=== PATIENT | male | born 1955 | race Caucasian/White ===

== ENCOUNTER 2022-06-09 13:34 | Outpatient (REF) | payer MEDICARE, MEDICAID, SELFPAY ==
[2022-06-09 16:03] LABS: ALT 208 U/L (16-63); AST 53 U/L (15-37); Albumin 3.5 g/dL (3.4-5.0); Alkaline Phosphatase 157 U/L (46-116); Anion Gap 4.7 mmol/L (3-11); BUN 13 mg/dL (7-18); Bilirubin, Total 1.5 mg/dL (0.2-1.0); CO2 30.3 mmol/L (21.0-32.0); CREATININE 0.9 mg/dL (0.70-1.30); Calcium 9.2 mg/dL (8.5-10.1); Chloride 103 mmol/L (98-107); Estimated GFR 93.03 (mL/min/1.73m2); Glucose 115 mg/dL (74-106); Lipase 42 U/L (16-77); Sodium 138 mmol/L (136-145); Total Protein 6.8 g/dL (6.4-8.2)
== END 2022-06-09 13:35 | disposition home or self-care (01) ==
LOC: NCHCN 13:34
PROVIDERS: PCP Internal Medicine; Visit Provider Family Medicine
DX: Z87.19 Personal history of other diseases of the digestive system (principal)
CPT/HCPCS: 80053; 83690

== ENCOUNTER 2022-08-18 15:27 | Outpatient (REF) | payer MEDICARE, SELFPAY ==
--- OUTSIDE RECORDS SUMMARY | 2022-08-18 15:31 | XMS_ITS | CCD ---
Author Name Unknown Address [address] [place] [address] [phone] Organization Unknown Address [address] [place] [address] [phone] Care Team Providers Care Capacity Manager Name Role Phone RUI RODARTE Attending Physician [phone] Vital Signs Unknown or Not Available. Allergies Allergy Code Allergy Type Reaction Status No Known Allergies 0 No known allergies Active Procedures Unknown or Not Available. History of Immunizations Unknown or Not Available. Problems Problem Code Start Date Resolved Date Status Acute pancreatitis [id number] Active Abdominal pain [id number] Active Gangrenous cholecystitis 71670814 06/03/2022 Resolved Results Unknown or Not Available. Active Medications Medication Code Dose Units Frequency Route Modificatio n Start Date/Time Pantoprazole Sodium 40 MG Oral Tablet, Delayed Release 186406 40 MG DAILY ORAL 05/18 18:41 Prescription Detail TAKE 40 MG ORAL DAILY Propranolol HCl 10MG Oral Tablet 496146 0.5 TABLET NEEDED ORAL 06/03/2022 18:41 Prescription Detail TAKE 0.5 TABLET ORAL NEEDED solifenacin succinate 5MG Oral Tablet 652567 5 MILLIGRAMS DAILY ORAL 023 18:41 Prescription Detail TAKE 5 MILLIGRAMS ORAL DAILY Medications Administered During Visit Unknown or Not Available. Encounters Encounter Diagnosis Diagnosis Code Start Date Acute pancreatitis without n ecrosis or infection, unspecified [id number] 06/03/2022 Social History Smoking Status Code Start Date End Date Never smoker [id number] Patient Decision Aids Unknown or Not Available. Discharge Instructions You were admitted to [facility] on 06/03/2022 12:19 with a principal diagnosis of Acute pancreatitis without necrosis or infection, unspecified You were discharged from [facility] on 06/03/2022 00:00 Should you have any questions prior to discharge, please contact a member of your healthcare team. If you have left the hospital and have any questions, please contact your primary care physician. Chief Complaint and Reason For Visit Unknown or Not Available. Function Status Unknown or Not Available. Plan of Care Unknown or Not Available. Referral/Transition of Care Unknown or Not Available.
--- OUTSIDE RECORDS SUMMARY | 2022-08-18 15:31 | XMS_ITS | CCD ---
Author Name Unknown Address [address] [place] [address] [phone] Organization Unknown Address [address] [place] [address] [id number] Care Team Providers Care Shipping Clerk Packing Name Role Phone RUI RODARTE Attending Physician [phone] EVY PULLIAM Er Physician [phone] EVY PULLIAM Rounding (Secondary) Physician [phone] [place]RIA Estrella Registered Nurse [phone] IDALMIS Zaragoza Registered Nurse [phone] Vital Signs Vital Sign Value Unit Date/Time Recent/Initial ? BMI (Body Mass Index) 34.56 kg/m^2 06/03/2022 09: 23 Initial VS Weight Measured 234 lbs 06/03/2022 09:23 Ini tial VS Height 69 in 06/03/2022 09:23 Initial VS BSA (Body Surface Area) 2.27 m^2 06/03/2022 0 9:23 Initial VS BP Systolic 135 mmHg 06/03/2022 09:23 Initial VS BP Diastolic 88 mmHg 06/03/2022 09:23 Initia l VS Respiratory Rate 16 bpm 06/03/2022 09:23 In itial VS Heart Rate 81 bpm 06/03/2022 09:23 Initial VS O2 % BldC Oximetry 94 % 06/03/2022 09:23 Initial VS Body Temperature 36.4 degrees 06/03/2022 09:23 In itial VS Body Temperature 37.1 degrees 06/03/2022 18:[address] Recent VS BP Systolic 138 mmHg 06/03/2022 19:43 Most Re cent VS BP Diastolic 76 mmHg 06/03/2022 19:43 Most R ecent VS Respiratory Rate 18 bpm 06/03/2022 19:[address] Recent VS Heart Rate 76 bpm 06/03/2022 19:43 Most Rec ent VS O2 % BldC Oximetry 97 % 06/03/2022 19:43 Most Recent VS Allergies Allergy Code Allergy Type Reaction Status No Known Allergies 0 No known allergies Active Procedures Unknown or Not Available. History of Immunizations Unknown or Not Available. Problems Problem Code Start Date Resolved Date Status Acute pancreatitis 635422712 Active Abdominal pain 16820293 Active Gangrenous cholecystitis 85607410 06/03/2022 Resolved Results COMPREHENSIVE METABOLIC PANE L (CMP) - Collect Date/Time: 06/03/2022 17:45 Test Name Code Test Result Test Units Test Ref Rang e GLUCOSE 2345-7 158 mg/dL L=70 H=116 BUN 3094-0 12 mg/dL L=6 H=25 CREATININE 2160-0 0.83 mg/dL L=0.67 H=1.17 SODIUM SERUM 2951-2 138 mmol/L L=136 H=145 POTASSIUM SERUM 2823-3 3.3 mmol/L L=3.4 H=5 .2 CHLORIDE SERUM 2075-0 102 mmol/L L=96 H=110 CARBON DIOXIDE (CO2) 2028-9 29 mmol/L L=22 H=34 ANION GAP 70947-1 7.0 mmol/L CALCIUM SERUM 52815-8 8.5 mg/dL L=8.2 H=10. 2 BILIRUBIN TOTAL 1975-2 3.6 mg/dL L=0.0 H=1 .3 ALK. PHOS. 6768-6 238 U/L L=46 H=116 SGOT (AST) 1920-8 128 U/L L=15 H=37 SGPT (ALT) 1742-6 481 U/L L=12 H=78 TOTAL PROTEIN 2885-2 6.3 gm/dL L=6.0 H=8.0 ALBUMIN 1751-7 3.1 gm/dL L=3.4 H=5.0 AGE 67 years eGFR (non-Afr.Amer.) 38658-4 92 mL/min eGFR (Afr-Bermudian) 85808-6 111 mL/min COMPREHENSIVE METABOLIC PANE L (CMP) - Collect Date/Time: 06/03/2022 09:50 Test Name Code Test Result Test Units Test Ref Rang e GLUCOSE 2345-7 129 mg/dL L=70 H=116 BUN 3094-0 13 mg/dL L=6 H=25 CREATININE 2160-0 0.74 mg/dL L=0.67 H=1.17 SODIUM SERUM 2951-2 138 mmol/L L=136 H=145 POTASSIUM SERUM 2823-3 3.4 mmol/L L=3.4 H=5 .2 CHLORIDE SERUM 2075-0 101 mmol/L L=96 H=110 CARBON DIOXIDE (CO2) 2028-9 28 mmol/L L=22 H=34 ANION GAP 79822-6 9.1 mmol/L CALCIUM SERUM 49128-1 8.7 mg/dL L=8.2 H=10. 2 BILIRUBIN TOTAL 1975-2 4.4 mg/dL L=0.0 H=1 .3 ALK. PHOS. 6768-6 255 U/L L=46 H=116 SGOT (AST) 1920-8 153 U/L L=15 H=37 SGPT (ALT) 1742-6 552 U/L L=12 H=78 TOTAL PROTEIN 2885-2 6.6 gm/dL L=6.0 H=8.0 ALBUMIN 1751-7 3.3 gm/dL L=3.4 H=5.0 AGE 67 years eGFR (non-Afr.Amer.) 49785-7 105 mL/min eGFR (Afr-Bermudian) 73930-1 >120 mL/min LIPASE* NEW - Collect Date/T clint: 06/03/2022 17:45 Test Name Code Test Result Test Units Test Ref Rang e LIPASE. 695 U/L L=16 H=77 LIPASE* NEW - Collect Date/T clint: 06/03/2022 09:50 Test Name Code Test Result Test Units Test Ref Rang e LIPASE. 1288 U/L L=16 H=77 MAGNESIUM SERUM* - Collect D ate/Time: 06/03/2022 09:50 Test Name Code Test Result Test Units Test Ref Rang e MAGNESIUM 41647-9 1.7 mg/dL L=1.8 H=2.4 CBC W/ DIFFERENTIAL* - Colle ct Date/Time: 06/03/2022 09:50 Test Name Code Test Result Test Units Test Ref Rang e WBC 6690-2 5.65 th/cmm L=5.00 H=10.00 NEUT % 73.1 % L=40.0 H=80.0 LYMPH % 16.5 % L=10.0 H=50.0 MONO % 59409-7 8.3 % L=2.0 H=12.0 EOS % 1.2 % L=0.0 H=8.0 BASO % 0.5 % L=0.0 H=3.0 IG % 2514-8 0.4 % L=0.0 H=1.1 NRBC % 83249-8 0.0 % L=0.0 H=0.0 NEUT abs count 751-8 4.1 th/cmm L=1.6 H=8. 4 LYMPH abs count 731-0 0.9 th/cmm L=1.5 H=4 .0 MONO abs count 742-7 0.5 th/cmm L=0.2 H=1. 0 EOS abs count 711-2 0.1 th/cmm L=0.0 H=0.5 BASO abs count 704-7 0.0 th/cmm L=0.0 H=0. 2 IG abs count 66064-3 0.0 th/cmm L=0.0 H=0.1 NRBC abs count 66411-0 0.0 mil/cmm L=0.0 H=0. 0 RBC 789-8 4.66 mil/cmm L=4.30 H=6.20 HEMOGLOBIN 718-7 15.9 gm/dL L=13.0 H=17.0 HEMATOCRIT 4544-3 45 % L=45 H=52 MCV 787-2 97 fL L=82 H=92 MCH 785-6 34.1 pg L=27.0 H=31.0 MCHC 786-4 35.2 % L=32.0 H=36.0 RDW-SD 788-0 46.4 fL L=39.0 H=49.0 PLATELET COUNT 777-3 189 th/cmm L=150 H=45 0 PT PROTHROMBIN TIME* - Colle ct Date/Time: 06/03/2022 09:50 Test Name Code Test Result Test Units Test Ref Rang e PROTIME 5902-2 10.5 seconds L=9.3 H=11.4 INR 38775-2 1.05 L=2.00 H=3.00 HIMA LOZOYAID GENEXPERT* - Co llect Date/Time: 06/03/2022 12:20 Test Name Code Test Result Test Units Test Ref Rang e COVID 70800-1 NEGATIVE N/A Normal: Negati ve SOURCE= 80659-3 Anterior nasal N/A Tier- 21383-0 INPATIENT/ED N/A URINALYSIS WITH REFLEX CULT IF POSITIVE* - Collect Date/Time: 06/03/2022 15:55 Test Name Code Test Result Test Units Test Ref Rang e COLLECTION MODE: 52595-1 CLEAN CATCH N/A Color 5778-6 YELLOW N/A yellow Appearance 5767-9 CLEAR N/A clear Glucose urine 04959-0 NEGATIVE N/A negative mg /dl Bilirubin 5770-3 SMALL N/A negative Ketones 2514-8 TRACE N/A negative mg/dl Spec gravity 5811-5 <=1.005 N/A 1.003 - 1.03 0 pH urine 2756-5 6.5 N/A 5.0 - 7.0 Protein 60987-3 NEGATIVE N/A negative mg/dl Urobilinogen 45432-4 0.2 N/A <or= 1 EU/dl Nitrite. 5802-4 NEGATIVE N/A negative Blood 5794-3 TRACE-IN N/A negative Leukocytes. NEGATIVE N/A negative MICROSCOPIC INDICATED N/A WBCs. 29025-9 0-5 N/A 0-5 / hpf RBCs 08261-9 0-5 N/A 0-5 / hpf Epith cells 69179-9 none N/A 0-5 / hpf Crystals none N/A none Bacteria none N/A none Mucus 8247-9 present N/A none Casts 32933-8 0-5 N/A none /lpf Cast types hyaline N/A Active Medications Medication Code Dose Units Frequency Route Modificatio n Start Date/Time Pantoprazole Sodium 40 MG Oral Tablet, Delayed Release 954263 40 MG DAILY ORAL 05/18 18:41 Prescription Detail TAKE 40 MG ORAL DAILY Propranolol HCl 10MG Oral Tablet 630891 0.5 TABLET NEEDED ORAL 06/03/2022 18:41 Prescription Detail TAKE 0.5 TABLET ORAL NEEDED solifenacin succinate 5MG Oral Tablet 090774 5 MILLIGRAMS DAILY ORAL 023 18:41 Prescription Detail TAKE 5 MILLIGRAMS ORAL DAILY Medications Administered During Visit Medication Dose Units Frequency Route Date/Time of Last Dose SODIUM CHLORIDE 0.9% 500ML 500 ML X1 IV 06/03/2022 10:00 MAGNESIUM SULF PREMIX IV BAG : 1GM/100ML 1 GM X1 IVPB 06/03/2022 12:2 2 SODIUM CHLORIDE 0.9% 1000ML 1000 ML CONT IV 06/03/2022 13:47 Encounters Encounter Diagnosis Diagnosis Code Start Date Acute pancreatitis [id number] 06/03/2022 Social History Smoking Status Code Start Date End Date Never smoker [id number] Patient Decision Aids Unknown or Not Available. Discharge Instructions You were admitted to [facility] on 06/03/2022 15:33 with a principal diagnosis of Acute pancreatitis without necrosis or infection, unspecified You had the following tests done:COMPREHENSIVE METABOLIC PANEL (CMP)LIPASE* NEWURINALYSIS WITH REFLEX CULT IF POSITIVE*[facility] COVID GENEXPERT*CBC W/ DIFFERENTIAL*COMPREHENSIVE METABOLIC PANEL (CMP)LIPASE* NEWMAGNESIUM SERUM*PT PROTHROMBIN TIME* You were discharged from [facility] on 06/03/2022 19:44 Should you have any questions prior to discharge, please contact a member of your healthcare team. If you have left the hospital and have any questions, please contact your primary care physician. Chief Complaint and Reason For Visit Chief Complaint Date of Onset ACUTE PANREATITIS ABDOMINAL PAIN 023 Function Status Unknown or Not Available. Plan of Care Unknown or Not Available. Referral/Transition of Care Unknown or Not Available.
[2022-08-18 20:53] LABS: Hemoglobin A1C 5.8 % (<5.7)
[2022-08-18 20:55] LABS: ALT 40 U/L (16-63); AST 23 U/L (15-37); Albumin 3.9 g/dL (3.4-5.0); Alkaline Phosphatase 74 U/L (46-116); Anion Gap 7.7 mmol/L (3-11); BUN 17 mg/dL (7-18); Bilirubin, Total 0.5 mg/dL (0.2-1.0); CO2 27.3 mmol/L (21.0-32.0); CREATININE 0.9 mg/dL (0.70-1.30); Chloride 105 mmol/L (98-107); Estimated GFR 93.03 (mL/min/1.73m2); Glucose 105 mg/dL (74-106); Potassium 4.2 mmol/L (3.5-5.1); Sodium 140 mmol/L (136-145); Total Protein 6.8 g/dL (6.4-8.2)
[2022-08-19 19:41] LABS: PSA, Screening 2.6 ng/mL (<=4.5)
== END 2022-08-18 15:28 | disposition home or self-care (01) ==
LOC: NCHCN 15:27
PROVIDERS: PCP Internal Medicine; Visit Provider Registered Nurse
DX: R73.09 Other abnormal glucose (principal); Z12.5 Encounter for screening for malignant neoplasm of prostate; Z87.19 Personal history of other diseases of the digestive system; Z00.00 Encounter for general adult medical examination without abnormal findings
CPT/HCPCS: 80053; 84153; 83036

== ENCOUNTER 2022-10-18 09:50 | Outpatient (CLI) | payer MEDICARE, SELFPAY ==
--- NOTE | 2022-10-18 09:30 | DI.RAD_ITS ---
Exam(s) XR SHOULDER RT COMPLETE 2+V EXAM: XR SHOULDER RT COMPLETE 2+V CLINICAL HISTORY: RIGHT SHOULDER PAIN. TECHNIQUE: 2D digital imaging was performed. Two views. COMPARISON: CR LEFT SHOULDER COMPLETE from 05/27/2014 FINDINGS: BONES: No acute fracture is present. No bony destructive lesion is seen. Spurring at the tip of the acromion. Spurring at greater and lesser tuberosities. JOINTS: No dislocation present. Glenohumeral joint space is maintained. Minimal spurring at the gle noid. SOFT TISSUE: Normal. IMPRESSION: Mild degenerative changes. DATA REPOSITORY: RADIATION DOSE DELIVERED:
--- NOTE | 2022-10-18 09:30 | DI.RAD_ITS ---
Exam(s) XR SHOULDER LT COMPLETE 2+V EXAM: XR SHOULDER LT COMPLETE 2+V CLINICAL HISTORY: LEFT SHOULDER PAIN. TECHNIQUE: 2D digital imaging was performed. Three views. COMPARISON: MR MRI - L UPPER JOINT WO CONT from 05/29/2014 FINDINGS: BONES: No acute fracture is present. No bony destructive lesion is seen. JOINTS: No dislocation present. Mild spurring at AC joint. Minimal spurring at glenoid. Glenohumer al joint space is maintained. Prominence of lesser tuberosity. SOFT TISSUE: Normal. IMPRESSION: Mild degenerative changes. DATA REPOSITORY: RADIATION DOSE DELIVERED:
== END 2022-10-18 09:51 | disposition home or self-care (01) ==
LOC: DIORS 09:50
PROVIDERS: PCP Registered Nurse; Referring Provider Registered Nurse; Visit Provider Student in an Organized Health Care Education/Training Program
DX: M19.011 Primary osteoarthritis, right shoulder; M19.012 Primary osteoarthritis, left shoulder
CPT/HCPCS: 20610; 99203; 73030; J1030

== ENCOUNTER 2022-12-19 09:49 | Outpatient (CLI) | payer MEDICARE, SELFPAY ==
--- NOTE | 2022-12-19 09:30 | DI.RAD_ITS ---
Exam(s) XR KNEE LT 3V AP,LAT,STEPHON EXAM: XR KNEE LT 3V AP,LAT,STEPHON CLINICAL HISTORY: LEFT KNEE PAIN. TECHNIQUE: 2D digital imaging was performed. COMPARISON: No exams were available for comparison FINDINGS: 3 views There is no evidence of fracture but there is a small joint effusion noted. On the weight-bearing vi ew there there is advanced narrowing of the medial compartment noted. Lateral compartment exhibits n ormal height. Some calcification is noted lateral to the bilateral femoral condyles in the region of the medial collateral ligament and fibular collateral ligament. Bone density normal. No osseous le sions. IMPRESSION: Degenerative changes, most evident in the medial compartment of the left knee DATA REPOSITORY: RADIATION DOSE DELIVERED:
== END 2022-12-19 09:50 | disposition home or self-care (01) ==
LOC: DIORS 09:49
PROVIDERS: PCP Family Medicine; Referring Provider Internal Medicine; Visit Provider Student in an Organized Health Care Education/Training Program
DX: M25.562 Pain in left knee (principal); M17.12 Unilateral primary osteoarthritis, left knee
CPT/HCPCS: 20610; 73562; J1040

== ENCOUNTER → 2023-03-27 09:47 | Outpatient (BNVA) | payer MEDICARE, SELFPAY | PROVIDERS: PCP Family Medicine; Referring Provider Family Medicine; Visit Provider Student in an Organized Health Care Education/Training Program | DX: M17.12 Unilateral primary osteoarthritis, left knee (principal) | CPT/HCPCS: 20610; J1040 ==

== ENCOUNTER → 2023-04-05 08:49 | Outpatient (BNVA) | payer MEDICARE, SELFPAY | PROVIDERS: PCP Family Medicine; Referring Provider Family Medicine; Visit Provider Student in an Organized Health Care Education/Training Program | DX: M19.011 Primary osteoarthritis, right shoulder (principal); M19.012 Primary osteoarthritis, left shoulder | CPT/HCPCS: 20610; J1030 ==

== ENCOUNTER → 2023-05-30 09:34 | Outpatient (BNVA) | payer MEDICARE, SELFPAY | PROVIDERS: PCP Family Medicine; Visit Provider Student in an Organized Health Care Education/Training Program | DX: M17.12 Unilateral primary osteoarthritis, left knee (principal); D68.51 Activated protein C resistance | CPT/HCPCS: 99214 ==

== ENCOUNTER → 2023-08-03 02:19 | Outpatient (CLI) | payer MEDICARE, SELFPAY ==
--- NOTE | 2023-08-03 07:30 | DI.RAD_ITS ---
Exam(s) RF JOINT INJECTION FLUORO GUID EXAM: RF JOINT INJECTION FLUORO GUID-RIGHT CLINICAL HISTORY: R SHOULDER INJ UNDER FLUORO,primary oa rt shoulder,m19.011 TECHNIQUE: Fluoroscopic guided shoulder glenohumeral joint injection CONTRAST MATERIAL: None COMPARISON: No exams were available for comparison FINDINGS: FLUOROSCOPIC GUIDED RIGHT SHOULDER THERAPEUTIC STEROID INJECTION Patient was consented prior to this procedure. Patient was placed in supine position on the fluoroscopy table. Using sterile technique and adequate skin-subcutaneous anesthesia, fluoroscopic guidance was used to advance a 22 gauge spinal needle into the glenohumeral joint via an anterior approach. Intra-articula r position of the needle was confirmed with contrast injection. Thereafter, a sterile solution of 80 milligrams methylprednisolone and 3 cc bupivacaine was injected into the intra-articular compartment. Patient tolerated this procedure well and there were no intraprocedural complications Cumulative Dose: Ka,r=1.13 mGy IMPRESSION: Successful fluoroscopic guided right shoulder glenohumeral joint therapeutic steroid injection. RADIATION DOSE DELIVERED:
--- NOTE | 2023-08-03 07:30 | DI.RAD_ITS ---
Exam(s) RF JOINT INJECTION FLUORO GUID EXAM: RF JOINT INJECTION FLUORO GUID-LEFT CLINICAL HISTORY: L SHOULDER INJ UNDER FLUORO,arthritis both glenohumeral joints,m19.012 TECHNIQUE: Fluoroscopic guided therapeutic left shoulder injection CONTRAST MATERIAL: Omnipaque-300; 3 cc COMPARISON: No exams were available for comparison FINDINGS: FLUOROSCOPIC GUIDED LEFT SHOULDER THERAPEUTIC STEROID INJECTION Patient was consented prior to this procedure. Patient was placed in supine position on the fluoroscopy table. Using sterile technique and adequate skin-subcutaneous anesthesia, fluoroscopic guidance was used to advance a 22 gauge spinal needle into the glenohumeral joint via an anterior approach. Intra-articula r position of the needle was confirmed with contrast injection. Thereafter, a sterile solution of 80 milligrams methylprednisolone and 3 cc bupivacaine was injected into the intra-articular compartment. Patient tolerated this procedure well and there were no intraprocedural complications Cumulative Dose: Ka,r=4.43 mGy IMPRESSION: Successful fluoroscopic guided left shoulder glenohumeral joint steroid injection RADIATION DOSE DELIVERED:
[2023-08-03] MEDS: Lidocaine 1% Multi-Dose 50 ML VIAL IJ (13:47)
[2023-08-03] MEDS: Omnipaque 300 MG/ML 10 ML BTL IJ (13:49)
[2023-08-03] MEDS: methylPREDNISolone ACETATE 80 MG/ML VIAL IM (13:50)
[2023-08-03] MEDS: Bupivacaine 0.5% Pres-Free 10 ML VIAL 25 ML IJ (13:52)
== END ==
PROVIDERS: PCP Family Medicine; Visit Provider Student in an Organized Health Care Education/Training Program
DX: M19.011 Primary osteoarthritis, right shoulder (principal); M19.012 Primary osteoarthritis, left shoulder
CPT/HCPCS: 20610; 77001; 77002; J0665; J1010

== ENCOUNTER → 2023-08-29 01:29 | Outpatient (CLI) | payer MEDICARE, SELFPAY ==
--- NOTE | 2023-08-29 08:15 | DI.RAD_ITS ---
Exam(s) XR FOOT RT COMPLETE EXAM: XR FOOT RT COMPLETE CLINICAL HISTORY: Right foot pain,m79.671. TECHNIQUE: 2D digital imaging was performed of the right foot. Three images were obtained. AP, obl ique and lateral views were obtained. COMPARISON: No exams were available for comparison FINDINGS: BONES: No acute fracture is present. No bony destructive lesion is seen. There is a small enthesophyt e at the posterior calcaneus. JOINTS: No dislocation present. There are mild degenerative changes seen at the talonavicular joint. There is a multicentric os peroneum. SOFT TISSUE: Normal. IMPRESSION: No acute fracture or dislocation. DATA REPOSITORY: RADIATION DOSE DELIVERED:
== END ==
PROVIDERS: PCP Family Medicine; Visit Provider Podiatrist
DX: M79.671 Pain in right foot (principal); M77.31 Calcaneal spur, right foot
CPT/HCPCS: 29540; 64455; 73630

== ENCOUNTER → 2023-10-04 10:01 | Outpatient (BNVA) | payer MEDICARE, SELFPAY | PROVIDERS: PCP Family Medicine; Referring Provider Family Medicine; Visit Provider Student in an Organized Health Care Education/Training Program | DX: M19.011 Primary osteoarthritis, right shoulder (principal); M19.012 Primary osteoarthritis, left shoulder; M75.101 Unspecified rotator cuff tear or rupture of right shoulder, not specified as traumatic | CPT/HCPCS: 99213 ==

== ENCOUNTER → 2023-10-12 09:02 | Outpatient (BNVA) | payer MEDICARE, SELFPAY | PROVIDERS: PCP Family Medicine; Referring Provider Family Medicine; Visit Provider Podiatrist | DX: G57.61 Lesion of plantar nerve, right lower limb (principal); M79.671 Pain in right foot; M67.01 Short Achilles tendon (acquired), right ankle; M67.02 Short Achilles tendon (acquired), left ankle | CPT/HCPCS: 64455; J0702; J1100 ==

== ENCOUNTER → 2023-10-17 01:12 | Outpatient (CLI) | payer MEDICARE, SELFPAY ==
--- NOTE | 2023-10-17 07:30 | DI.MRI_ITS ---
Exam(s) MR UPPER JOINT RT WO EXAM: MR UPPER JOINT RT WO CLINICAL HISTORY: R SHOULDER PAIN,rt rotator cuff tear,m75.101. TECHNIQUE: Multiplanar multisequence MRI was performed. COMPARISON: Plain films 18 October 2022 FINDINGS: BONES: There is no fracture or contusion pattern. Small degenerative cysts in the humeral head. JOINTS:The acromioclavicular joint shows minimal degenerative changes. Spurring at the tip of the ac romion. The glenohumeral joint is normal. TENDONS: Supraspinatus: Thickening and intermediate signal in the distal supraspinatus tendon, consistent with tendinosis. Infraspinatus: Unremarkable. Subscapularis: Unremarkable. Teres Minor: Unremarkable. Biceps and [place]: Unremarkable. MUSCLES: Unremarkable. GLENOID LABRUM: Unremarkable on this noncontrast examination. SOFT TISSUES: Unremarkable. OTHER: Subacromial and subdeltoid bursae shows minimal fluid.. IMPRESSION: Supraspinatus tendinosis. DATA REPOSITORY:
== END ==
PROVIDERS: PCP Family Medicine; Visit Provider Student in an Organized Health Care Education/Training Program
DX: M75.101 Unspecified rotator cuff tear or rupture of right shoulder, not specified as traumatic (principal); M67.813 Other specified disorders of tendon, right shoulder
CPT/HCPCS: 73221

== ENCOUNTER → 2023-10-25 08:23 | Outpatient (BNVA) | payer MEDICARE, SELFPAY | PROVIDERS: PCP Family Medicine; Referring Provider Family Medicine; Visit Provider Student in an Organized Health Care Education/Training Program | DX: M19.011 Primary osteoarthritis, right shoulder (principal); M19.012 Primary osteoarthritis, left shoulder; M75.101 Unspecified rotator cuff tear or rupture of right shoulder, not specified as traumatic | CPT/HCPCS: 99213 ==

== ENCOUNTER → 2023-11-07 08:33 | Outpatient (BNVA) | payer MEDICARE, SELFPAY | PROVIDERS: PCP Family Medicine; Referring Provider Family Medicine; Visit Provider Podiatrist | DX: M79.671 Pain in right foot (principal); G57.81 Other specified mononeuropathies of right lower limb; M67.01 Short Achilles tendon (acquired), right ankle; M67.02 Short Achilles tendon (acquired), left ankle | CPT/HCPCS: 99213 ==

== ENCOUNTER 2024-01-04 00:39 | Outpatient (CLI) | payer MEDICARE, SELFPAY ==
--- NOTE | 2024-01-04 06:30 | DI.MRI_ITS ---
Exam(s) MR LOWER EXTREMITY RT WO EXAM: MR LOWER EXTREMITY RT WO CLINICAL HISTORY: Neuroma versus bursa third interspace of rt foot, g57.81. TECHNIQUE: Multiplanar multisequence MRI was performed. COMPARISON: CR XR FOOT RT COMPLETE from 08/29/2023 FINDINGS: BONES/JOINTS: No evidence of fracture. Subchondral cysts are seen at the articular surface of the med ial cuneiform. No joint space narrowing identified. There is a small effusion in the 1st metatarsoph alangeal joint. LIGAMENTS: The medial and lateral collateral ligaments are intact. MUSCULOTENDINOUS STRUCTURES: Visualized portion of the planar fascia is unremarkable. The visualized intrinsic muscles and tendons of the foot are unremarkable. SOFT TISSUES: There is mild hyperintense signal seen on the plantar surface of the foot adjacent to t he heads of the 2nd and 3rd metatarsals. No teardrop shaped mass is identified. There is no displacem ent of the surrounding structures. No focal fluid collection is seen. There is a tiny amount of fluid seen between the metatarsal heads but it is less than 2 mm and is likely physiologic. OTHER FINDINGS: None. IMPRESSION: 1. Mild edema in the subcutaneous tissues adjacent to the heads of the 2nd and 3rd metatarsals. No ma ss or focal fluid collection is seen. There is no displacement of the surrounding structures. No defi nite evidence of a neuroma. Tiny amount of fluid between the metatarsal heads which is less than 2 mm and is likely physiologic. DATA REPOSITORY:
== END 2024-01-04 00:59 ==
LOC: DI 00:39
PROVIDERS: PCP Family Medicine; Visit Provider Podiatrist
DX: G57.81 Other specified mononeuropathies of right lower limb (principal)
CPT/HCPCS: 73718

== ENCOUNTER → 2024-01-10 10:27 | Outpatient (BNVA) | payer MEDICARE, SELFPAY | PROVIDERS: PCP Family Medicine; Referring Provider Family Medicine; Visit Provider Podiatrist | DX: L60.0 Ingrowing nail (principal); M79.671 Pain in right foot; G57.61 Lesion of plantar nerve, right lower limb; M67.01 Short Achilles tendon (acquired), right ankle; M67.02 Short Achilles tendon (acquired), left ankle | CPT/HCPCS: 11750; 64455 ==

== ENCOUNTER → 2024-01-31 08:21 | Outpatient (BNVA) | payer MEDICARE, SELFPAY | PROVIDERS: PCP Family Medicine; Referring Provider Family Medicine; Visit Provider Student in an Organized Health Care Education/Training Program ==

== ENCOUNTER 2024-01-31 11:21 | Outpatient (CLI) | payer MEDICARE, SELFPAY ==
[2024-01-31 09:36] LABS: HCT 48.1 % (40.0-50.0); HGB 16.2 g/dL (13.5-17.5); MCH 33.1 pg (27.0-33.0); MCHC 33.7 % (32.0-36.0); MCV 98 fL (80-95); MPV 9.5 fL (8.0-11.0); Platelet Count 185 10^3/uL (130-400); RBC 4.89 10^6/uL (4.36-5.78); RDW 11.9 % (11.8-14.1); RDW-SD 43.3 fL; WBC 3.73 10^3/uL (4.4-10.8)
[2024-01-31 09:41] LABS: ESR < 1 mm/hr (0-20)
[2024-01-31 10:06] LABS: C-Reactive Protein < 0.50 mg/dL (<or=0.5)
== END 2024-01-31 11:22 | disposition home or self-care (01) ==
LOC: LBO 11:22
PROVIDERS: PCP Family Medicine; Visit Provider Student in an Organized Health Care Education/Training Program
DX: M35.3 Polymyalgia rheumatica (principal); M75.101 Unspecified rotator cuff tear or rupture of right shoulder, not specified as traumatic; Z09 Encounter for follow-up examination after completed treatment for conditions other than malignant neoplasm; L60.0 Ingrowing nail; M79.673 Pain in unspecified foot; M79.671 Pain in right foot; G57.81 Other specified mononeuropathies of right lower limb; M67.01 Short Achilles tendon (acquired), right ankle; M67.02 Short Achilles tendon (acquired), left ankle
CPT/HCPCS: 36415; 64455; 85027; 85652; 99213; 86140

== ENCOUNTER 2024-02-05 00:56 | Outpatient (CLI) | payer MEDICARE, SELFPAY ==
[2024-02-05] MEDS: Lidocaine 1% Pres-Free 30 ML VIAL IJ (15:51)
[2024-02-05] MEDS: Bupivacaine 0.5% Pres-Free 10 ML VIAL IJ (15:52)
[2024-02-05] MEDS: Omnipaque 300 MG/ML 10 ML BTL IJ (15:53)
[2024-02-05] MEDS: methylPREDNISolone ACETATE 40 MG/ML VIAL IM ×2 (15:54→15:55)
--- NOTE | 2024-02-05 16:00 | DI.RAD_ITS ---
Exam(s) RF JOINT INJ. FLUORO GUID RAD EXAM: RF JOINT INJ. FLUORO GUID RAD CLINICAL HISTORY: L SHOULDER PAIN,M19.011, FLUORO GUIDED INJECTION. TECHNIQUE: 2D and realtime digital imaging was performed. CONTRAST MATERIAL: 2.39 oral water soluble contrast was administered. COMPARISON: RF RF JOINT INJECTION FLUORO GUID from 08/03/2023 RF RF JOINT INJECTION FLUORO GUID from 08/03/2023 FINDINGS: FLUOROSCOPIC GUIDED LEFT SHOULDER THERAPEUTIC STEROID INJECTION: Patient was consented prior to this procedure. The patient was placed in the supine position on the fluoroscopy table. Using sterile technique and adequate skin-subcutaneous anesthesia, fluoroscopic guidance was used to advance a 22 gauge spinal needle into the glenohumeral joint space via an anterior approach. Intra-a rticular position of the needle was confirmed with injection of 2 cc Omnipaque 300. Thereafter a krupa rile solution of 40 milligrams methyl prednisolone/depot Medrol and 4 cc bupivacaine was injected int o the articular space. Patient tolerated this procedure well and there were no intraprocedural complications IMPRESSION: Successful fluoroscopic guided left shoulder glenohumeral joint injection RADIATION DOSE DELIVERED: Ka,r=2.39mGy
--- NOTE | 2024-02-05 16:00 | DI.RAD_ITS ---
Exam(s) RF JOINT INJ. FLUORO GUID RAD EXAM: RF JOINT INJ. FLUORO GUID RAD CLINICAL HISTORY: R SHOULDER PAIN,M19.011, FLUORO GUIDED INJECTION. TECHNIQUE: 2D and realtime digital imaging was performed. CONTRAST MATERIAL: See below COMPARISON: Prior study 08/03/2023 was reviewed FINDINGS: FLUOROSCOPIC GUIDED RIGHT SHOULDER THERAPEUTIC STEROID INJECTION: Patient was consented prior to this procedure. Patient was placed in supine position on the fluoroscopy table. Using sterile technique and adequate skin-subcutaneous anesthesia, fluoroscopic guidance was used to advance a 22 gauge spinal needle into the glenohumeral joint via an anterior approach. Intra-articul ar position of the needle was confirmed with injection of 2 cc of Omnipaque 300. Thereafter a steril e solution of 40 milligrams methylprednisolone/Depo-Medrol and 4 cc bupivacaine was injected into the joint space. Patient tolerated this procedure well and there were no intraprocedural complications. IMPRESSION: Successful fluoroscopic guided right shoulder glenohumeral joint injection RADIATION DOSE DELIVERED: Ka,r=2.52mGy
== END 2024-02-05 01:16 ==
LOC: DI 00:56
PROVIDERS: PCP Family Medicine; Visit Provider Student in an Organized Health Care Education/Training Program
DX: M19.011 Primary osteoarthritis, right shoulder (principal); M19.012 Primary osteoarthritis, left shoulder
CPT/HCPCS: 20610; 77002; J0665; J1010

== ENCOUNTER → 2024-02-22 10:16 | Outpatient (BNVA) | payer MEDICARE, SELFPAY | PROVIDERS: PCP Family Medicine; Referring Provider Family Medicine; Visit Provider Podiatrist | DX: L60.0 Ingrowing nail (principal); M79.671 Pain in right foot; G57.61 Lesion of plantar nerve, right lower limb; M67.01 Short Achilles tendon (acquired), right ankle; M67.02 Short Achilles tendon (acquired), left ankle | CPT/HCPCS: 64455; J0702; J1100 ==

== ENCOUNTER → 2024-04-16 14:21 | Outpatient (BNVA) | payer MEDICARE, SELFPAY | PROVIDERS: PCP Family Medicine; Referring Provider Family Medicine; Visit Provider Podiatrist | DX: L60.0 Ingrowing nail (principal); M79.671 Pain in right foot; G57.81 Other specified mononeuropathies of right lower limb; M67.01 Short Achilles tendon (acquired), right ankle; M67.02 Short Achilles tendon (acquired), left ankle | CPT/HCPCS: 99213 ==